=== PATIENT | male | born 1955 | race Caucasian/White ===

== ENCOUNTER → 2019-02-07 | Outpatient (CLI) | payer MEDICARE, BC ==
[~2019-02-07] MED LIST: AMLO10 PO; ATEN25 PO; Aspir 8181 MG PO; FISH1000 PO; FOLI1 PO; FURO40 PO; Humalog100 UNIT/1; INSULANPEN SC; Micro-K10 MEQ PO; NIACIN PO; TAMS.4ER PO; ZESTRIL40 MG PO; Zocor40 MG PO
[2019-02-07 11:38] LABS: BASOPHILS ABSOLUTE AUTO 0.14 K/mm3 (0.00-0.23); BASOPHILS PERCENT AUTO 1 % (0-2); EOSINOPHILS ABSOLUTE AUTO 0.15 K/mm3 (0.00-0.68); EOSINOPHILS PERCENT AUTO 1 % (0-6); Hematocrit 49.3 % (37.0-53.0); Hemoglobin 16.2 g/dL (13.5-17.5); IMMATURE GRAN ABSOLUTE AUTO 0.04 K/mm3 (0.00-0.10); IMMATURE GRAN PERCENT AUTO 0 % (0-1); LYMPHOCYTES ABSOLUTE AUTO 2.31 K/mm3 (0.84-5.20); LYMPHOCYTES PERCENT AUTO 20 % (21-46); MONOCYTES ABSOLUTE AUTO 0.81 K/mm3 (0.16-1.47); MONOCYTES PERCENT AUTO 7 % (4-13); Mean Corpuscular HGB 28.7 pg (26.0-34.0); Mean Corpuscular HGB Conc 32.9 g/dL (31.5-36.5); Mean Corpuscular Volume 87 fL (80-100); Mean Platelet Volume 9.7 fL (9.1-12.4); NEUTROPHILS ABSOLUTE AUTO 8.02 K/mm3 (1.96-9.15); NEUTROPHILS PERCENT AUTO 70 % (41-73); Platelet Count 427 K/mm3 (150-400); RDW Coefficient Variation 13.2 % (11.7-14.2); RDW Standard Deviation 42.3 fL (35.1-46.3); Red Blood Cell Count 5.64 M/mm3 (4.30-5.90); White Blood Cell Count 11.47 K/mm3 (4.00-11.30)
[2019-02-07 11:47] LABS: Albumin, Blood 3.8 g/dL (3.4-5.0); Albumin/Globulin Ratio 1.1 (0.8-1.8); Bilirubin, Total 0.7 mg/dL (0.1-1.0); Bun/Creatinine Ratio 14.3 (12.0-20.0); Calcium, Blood 9.1 mg/dL (8.5-10.1); Creatinine, Blood 1.47 mg/dL (0.60-1.20); Globulin, Blood 3.6 g/dL (2.2-4.0); Potassium, Blood 4.6 mmol/L (3.5-5.5); Total Protein, Blood 7.4 g/dL (6.4-8.2)
== END | disposition home or self-care (01) ==
LOC: LAB SHORT 11:33 → LAB EV 11:33
PROVIDERS: Physician Assistant
DX: R22.1 Localized swelling, mass and lump, neck (principal)
CPT/HCPCS: 80053; 85025

== ENCOUNTER → 2020-01-16 | Outpatient (CLI) | payer MEDICARE, BC ==
[2020-01-16 15:36] LABS: Creatinine Urine 61.8 mg/dL (27.00-270.00); Protein, Urine Quantitative 18.2 mg/dL (0.0-11.9)
== END ==
LOC: LAB SHORT 12:03 → OLS 12:03
PROVIDERS: Internal Medicine Nephrology
DX: E55.9 Vitamin D deficiency, unspecified (principal); E78.00 Pure hypercholesterolemia, unspecified; N25.81 Secondary hyperparathyroidism of renal origin; N18.3 Chronic kidney disease, stage 3 (moderate); R76.9 Abnormal immunological finding in serum, unspecified; R94.5 Abnormal results of liver function studies; R94.6 Abnormal results of thyroid function studies; D51.8 Other vitamin B12 deficiency anemias; D52.8 Other folate deficiency anemias; D50.9 Iron deficiency anemia, unspecified
CPT/HCPCS: 81050; 82043; 82570; 84156

== ENCOUNTER → 2020-03-29 | Outpatient (CLI) | payer MEDICARE, BC ==
[2020-03-29 15:54] LABS: Creatinine Urine 77.5 mg/dL (27.00-270.00); Protein, Urine Quantitative 23.3 mg/dL (0.0-11.9)
== END | disposition home or self-care (01) ==
LOC: LAB 10:48 → LAB SHORT 10:48
PROVIDERS: Internal Medicine Nephrology
DX: N18.30 Chronic kidney disease, stage 3 unspecified (principal); D63.1 Anemia in chronic kidney disease; R76.9 Abnormal immunological finding in serum, unspecified; R94.6 Abnormal results of thyroid function studies; R94.5 Abnormal results of liver function studies; N25.81 Secondary hyperparathyroidism of renal origin; E55.9 Vitamin D deficiency, unspecified; E78.00 Pure hypercholesterolemia, unspecified
CPT/HCPCS: 81050; 82043; 82570; 84156

== ENCOUNTER 2021-04-05 07:50 | Day surgery (SDC) | payer MEDICARE, BC ==
[~2021-04-05] VITALS: Ht 185.4 cm; Wt 101.0 kg
== END 2021-04-05 09:53 | disposition home or self-care (01) ==
LOC: ORSCSDS 07:50
PROVIDERS: Internal Medicine Gastroenterology
PROC: 0DBK8ZX Excision of Ascending Colon, Via Natural or Artificial Opening Endoscopic, Diagnostic (ICD-10-PCS; principal; 2021-04-05 09:00)
PROC: 0DBM8ZX Excision of Descending Colon, Via Natural or Artificial Opening Endoscopic, Diagnostic (ICD-10-PCS; principal; 2021-04-05 09:00)
DX: Z12.11 Encounter for screening for malignant neoplasm of colon (principal); D12.2 Benign neoplasm of ascending colon; D12.4 Benign neoplasm of descending colon; J44.9 Chronic obstructive pulmonary disease, unspecified; E10.8 Type 1 diabetes mellitus with unspecified complications; E66.9 Obesity, unspecified; Z68.31 Body mass index [BMI] 31.0-31.9, adult; Z79.4 Long term (current) use of insulin; Z79.899 Other long term (current) drug therapy
CPT/HCPCS: 82947; 88305; J2704; J7120

== ENCOUNTER 2021-07-13 14:10 | Emergency (ER) | payer MEDICARE, BC ==
[~2021-07-13] VITALS: Ht 182.9 cm; Wt 102.1 kg
[2021-07-13] MEDS ORDERED: Crutch1 EACH MISC ×2 (15:40→15:42)
[2021-07-13] MEDS ORDERED: Norco 5-325 Ta1 EACH PO ×2 (15:40→15:42)
== END 2021-07-13 16:11 | disposition home or self-care (01) ==
LOC: ER 14:10
DX: S82.852A Displaced trimalleolar fracture of left lower leg, initial encounter for closed fracture (principal); W11.XXXA Fall on and from ladder, initial encounter; Z79.899 Other long term (current) drug therapy; Z79.82 Long term (current) use of aspirin; Z79.4 Long term (current) use of insulin; I10 Essential (primary) hypertension; E78.5 Hyperlipidemia, unspecified; E11.9 Type 2 diabetes mellitus without complications; J44.9 Chronic obstructive pulmonary disease, unspecified; Z87.891 Personal history of nicotine dependence
CPT/HCPCS: 27818; 73600; 73610; 99152; 99284-25; J2704; J7030

== ENCOUNTER 2021-07-19 10:41 | Day surgery (SDC) | payer MEDICARE, BC ==
[~2021-07-19] VITALS: Ht 185.4 cm; Wt 103.2 kg
[~2021-07-19 10:41] MED LIST changes: +Crutch1 EACH MISC; +Norco 5-325 Ta1 EACH PO
--- NOTE | 2021-07-19 13:44 | NUR ---
07/19/21 1344 Nan Poon PATIENT INTUBATED AND BLOCKED ON THE GURNEY THEN TRANSFERED TO OR TABLE. PATIENT POSITIONED ON BOLSTERS, FOAM HEADREST, TOWEL ROLLS UNDER SHOULDERS, KNEES FLEXED WITH PILLOWS, GEL UNDER KNEES, ARMS SECURED ON FOAM PADDED ARM BOARDS. POSITION CHECKED BY ANESTHESIOLOGIST.
== END 2021-07-19 15:23 | disposition home or self-care (01) ==
LOC: ORSCSDS 10:41
PROVIDERS: Podiatrist Foot & Ankle Surgery
PROC: 0QSH04Z Reposition Left Tibia with Internal Fixation Device, Open Approach (ICD-10-PCS; principal; 2021-07-19 12:00)
PROC: 0QSK04Z Reposition Left Fibula with Internal Fixation Device, Open Approach (ICD-10-PCS; principal; 2021-07-19 12:00)
DX: S82.852A Displaced trimalleolar fracture of left lower leg, initial encounter for closed fracture (principal); I10 Essential (primary) hypertension; E10.9 Type 1 diabetes mellitus without complications; E78.5 Hyperlipidemia, unspecified; J44.9 Chronic obstructive pulmonary disease, unspecified; Z87.891 Personal history of nicotine dependence; Z79.899 Other long term (current) drug therapy; Z79.82 Long term (current) use of aspirin
CPT/HCPCS: 82947; A9270; C1713; J0171; J0690; J1100; J1885; J2250; J2370; J2405; J2704; J3010; J7120

== ENCOUNTER 2024-07-09 12:00 | Emergency (ER) | payer MEDICARE, BC ==
[~2024-07-09] VITALS: Ht 190.5 cm; Wt 95.7 kg
[2024-07-09 14:27] LABS: BASOPHILS ABSOLUTE AUTO 0.14 K/mm3 (0.00-0.23); BASOPHILS PERCENT AUTO 1 % (0-2); EOSINOPHILS PERCENT AUTO 2 % (0-6); Hematocrit 42.3 % (37.0-53.0); IMMATURE GRAN ABSOLUTE AUTO 0.06 K/mm3 (0.00-0.10); IMMATURE GRAN PERCENT AUTO 1 % (0-1); LYMPHOCYTES ABSOLUTE AUTO 1.79 K/mm3 (0.84-5.20); LYMPHOCYTES PERCENT AUTO 14 % (21-46); MONOCYTES ABSOLUTE AUTO 1.24 K/mm3 (0.16-1.47); MONOCYTES PERCENT AUTO 9 % (4-13); Mean Corpuscular HGB Conc 33.1 g/dL (31.5-36.5); Mean Corpuscular Volume 88 fL (80-100); Mean Platelet Volume 9.5 fL (9.1-12.4); NEUTROPHILS ABSOLUTE AUTO 9.66 K/mm3 (1.96-9.15); NEUTROPHILS PERCENT AUTO 73 % (41-73); Platelet Count 342 K/mm3 (150-400); RDW Coefficient Variation 12.9 % (11.7-14.2); RDW Standard Deviation 41.3 fL (35.1-46.3); Red Blood Cell Count 4.83 M/mm3 (4.30-5.90); White Blood Cell Count 13.19 K/mm3 (4.00-11.30)
[2024-07-09 14:49] LABS: Bun/Creatinine Ratio 17.2 (12.0-20.0); Calcium, Blood 9.2 mg/dL (8.5-10.1); Creatinine, Blood 2.04 mg/dL (0.60-1.20); Potassium, Blood 4.2 mmol/L (3.5-5.5)
[2024-07-09 16:15] VITALS: BP 156/58
== END 2024-07-09 16:36 | disposition home or self-care (01) ==
LOC: ER 12:00
PROVIDERS: Emergency Medicine
DX: E10.649 Type 1 diabetes mellitus with hypoglycemia without coma (principal); E10.65 Type 1 diabetes mellitus with hyperglycemia; R55 Syncope and collapse; I10 Essential (primary) hypertension; E78.5 Hyperlipidemia, unspecified; Z79.4 Long term (current) use of insulin; Z79.899 Other long term (current) drug therapy; Z79.82 Long term (current) use of aspirin
CPT/HCPCS: 36415; 71046; 80048; 80053; 82947; 83036; 84484; 85025; 93005; 93010; 99284-25

== ENCOUNTER 2024-08-24 14:47 | Emergency (ER) | payer MEDICARE, BC ==
[~2024-08-24] VITALS: Ht 182.9 cm; Wt 93.0 kg
[2024-08-24 15:24] LABS: BASOPHILS ABSOLUTE AUTO 0.13 K/mm3 (0.00-0.23); BASOPHILS PERCENT AUTO 1 % (0-2); EOSINOPHILS PERCENT AUTO 3 % (0-6); Hematocrit 43.2 % (37.0-53.0); Hemoglobin 14.3 g/dL (13.5-17.5); IMMATURE GRAN ABSOLUTE AUTO 0.04 K/mm3 (0.00-0.10); IMMATURE GRAN PERCENT AUTO 0 % (0-1); LYMPHOCYTES ABSOLUTE AUTO 2.43 K/mm3 (0.84-5.20); LYMPHOCYTES PERCENT AUTO 26 % (21-46); MONOCYTES ABSOLUTE AUTO 0.67 K/mm3 (0.16-1.47); MONOCYTES PERCENT AUTO 7 % (4-13); Mean Corpuscular HGB 29.1 pg (26.0-34.0); Mean Corpuscular HGB Conc 33.1 g/dL (31.5-36.5); Mean Corpuscular Volume 88 fL (80-100); Mean Platelet Volume 9.7 fL (9.1-12.4); NEUTROPHILS ABSOLUTE AUTO 5.64 K/mm3 (1.96-9.15); NEUTROPHILS PERCENT AUTO 61 % (41-73); Platelet Count 422 K/mm3 (150-400); RDW Coefficient Variation 13.1 % (11.7-14.2); RDW Standard Deviation 42.5 fL (35.1-46.3); Red Blood Cell Count 4.91 M/mm3 (4.30-5.90); White Blood Cell Count 9.21 K/mm3 (4.00-11.30)
[2024-08-24 15:44] LABS: Albumin, Blood 2.9 g/dL (3.4-5.0); Bilirubin, Total 0.4 mg/dL (0.1-1.0); Calcium, Blood 8.7 mg/dL (8.5-10.1); Globulin, Blood 2.9 g/dL (2.2-4.0); Potassium, Blood 4.2 mmol/L (3.5-5.5); Total Protein, Blood 5.8 g/dL (6.4-8.2)
[2024-08-24 18:27] VITALS: BP 146/88
== END 2024-08-24 20:27 | disposition home or self-care (01) ==
LOC: ER 14:47
PROVIDERS: Physician Assistant
DX: R55 Syncope and collapse (principal); E10.51 Type 1 diabetes mellitus with diabetic peripheral angiopathy without gangrene; I10 Essential (primary) hypertension; E78.5 Hyperlipidemia, unspecified; N40.0 Benign prostatic hyperplasia without lower urinary tract symptoms; Z79.4 Long term (current) use of insulin; Z79.82 Long term (current) use of aspirin; Z79.899 Other long term (current) drug therapy
CPT/HCPCS: 71045; 80053; 83690; 85025; 93005; 93010; 99284-25

== ENCOUNTER 2024-09-19 09:01 | Emergency (ER) | payer MEDICARE, BC ==
[~2024-09-19] VITALS: Ht 182.9 cm; Wt 92.5 kg
[2024-09-19] MEDS ORDERED: Ondansetron HCl 2 MG / ML 2ML Vial IV PRN (09:35)
[2024-09-19] MEDS ORDERED: NS 1,000 ML IV SCH (09:35)
[2024-09-19 10:04] LABS: BASOPHILS PERCENT AUTO 2 % (0-2); EOSINOPHILS ABSOLUTE AUTO 0.49 K/mm3 (0.00-0.68); EOSINOPHILS PERCENT AUTO 5 % (0-6); Hematocrit 42.6 % (37.0-53.0); Hemoglobin 14.2 g/dL (13.5-17.5); IMMATURE GRAN ABSOLUTE AUTO 0.04 K/mm3 (0.00-0.10); IMMATURE GRAN PERCENT AUTO 0 % (0-1); LYMPHOCYTES ABSOLUTE AUTO 2.24 K/mm3 (0.84-5.20); LYMPHOCYTES PERCENT AUTO 21 % (21-46); MONOCYTES ABSOLUTE AUTO 0.92 K/mm3 (0.16-1.47); MONOCYTES PERCENT AUTO 9 % (4-13); Mean Corpuscular HGB 28.4 pg (26.0-34.0); Mean Corpuscular HGB Conc 33.3 g/dL (31.5-36.5); Mean Corpuscular Volume 85 fL (80-100); Mean Platelet Volume 9.4 fL (9.1-12.4); NEUTROPHILS ABSOLUTE AUTO 6.77 K/mm3 (1.96-9.15); NEUTROPHILS PERCENT AUTO 64 % (41-73); Platelet Count 360 K/mm3 (150-400); RDW Coefficient Variation 13.2 % (11.7-14.2); RDW Standard Deviation 40.7 fL (35.1-46.3); White Blood Cell Count 10.66 K/mm3 (4.00-11.30)
[2024-09-19] MEDS ORDERED: NiCARdipine HCL 50 MG in NS 250 ML IV SCH (10:15)
[2024-09-19] MEDS ORDERED: [UNRECOGNIZED DRUG - OTHER] IV ONE (10:20)
[2024-09-19] MEDS ORDERED: MANNITOL IV ONE (10:20)
[2024-09-19] MEDS ORDERED: Mannitol 500 ML IV SCH (10:20)
[2024-09-19] MEDS ORDERED: levETIRAcetam 1,000 MG in NS 100 ML IV ONE (10:20)
[2024-09-19] MEDS ORDERED: propofoL 100 ML IV ONE ×2 (10:35→12:21)
[2024-09-19 10:55] LABS: Albumin, Blood 3.3 g/dL (3.4-5.0); Albumin/Globulin Ratio 1.1 (0.8-1.8); Bilirubin, Total 0.8 mg/dL (0.1-1.0); Calcium, Blood 9.1 mg/dL (8.5-10.1); Creatinine, Blood 2.06 mg/dL (0.60-1.20); Globulin, Blood 2.9 g/dL (2.2-4.0); Potassium, Blood 3.5 mmol/L (3.5-5.5); Total Protein, Blood 6.2 g/dL (6.4-8.2)
[2024-09-19] MEDS ORDERED: Tranexamic Acid 100 ML IV ONE (10:55)
[2024-09-19 12:15] VITALS: BP 137/58
[2024-09-19] MEDS ORDERED: propofoL 100 ML IV SCH (12:25)
[2024-09-19] MEDS ORDERED: Etomidate 2MG / ML 10ML Vial XX ONE (13:30)
[2024-09-19] MEDS ORDERED: SuccINYLCHOLINE Chloride 100 MG/5 ML 5MLSYR IV ONE (13:30)
== END 2024-09-19 13:08 | disposition short-term general hospital (02) ==
LOC: ER 09:01
PROVIDERS: Emergency Medicine
DX: I60.9 Nontraumatic subarachnoid hemorrhage, unspecified (principal); I10 Essential (primary) hypertension; E10.9 Type 1 diabetes mellitus without complications; E78.5 Hyperlipidemia, unspecified; Z87.891 Personal history of nicotine dependence; Z79.82 Long term (current) use of aspirin; Z79.899 Other long term (current) drug therapy
CPT/HCPCS: 31500; 51702; 70450; 71045; 80053; 85025; 94002; 96365-59; 96366-59; 96368; 96375-59; 99285-25; J0330; J1953; J2150; J2405; J2704; J7030; J7050